=== PATIENT | female | born 1985 | race Caucasian/White ===

== ENCOUNTER 2016-10-25 14:44 | Observation (INO) | payer OTHER ==
[~2016-10-25] VITALS: Ht 165.1 cm; Wt 98.4 kg
[2016-10-25] MEDS ORDERED: PREN-380 PO (15:04)
[2016-10-25 15:25] VITALS: BP 116/63
== END 2016-10-25 20:15 | disposition home or self-care (01) ==
LOC: MLD 14:44
PROVIDERS: ADMIT Obstetrics & Gynecology; ATTEND Obstetrics & Gynecology
DX: O62.9 Abnormality of forces of labor, unspecified (principal); Z3A.37 37 weeks gestation of pregnancy
CPT/HCPCS: 76805; G0378; Q0092; 59025

== ENCOUNTER 2016-10-29 08:10 | Inpatient (IN) | payer OTHER ==
[~2016-10-29] VITALS: Ht 165.1 cm; Wt 96.2 kg
[~2016-10-29 08:10] MED LIST: PREN-380 PO
[2016-10-29] MEDS ORDERED: MISOPROSTOL 25 MCG TAB ONE ×2 (09:36→21:12)
[2016-10-29] MEDS ORDERED: MISOPROSTOL 25 MCG TAB VG ONE (09:40)
[2016-10-29] MEDS ORDERED: METHYLERGONOVINE 0.2 MG/ML AMP IM PRN (09:40)
[2016-10-29] MEDS ORDERED: CARBOPROST 250 MCG/ML AMP IM PRN (09:40)
[2016-10-29] MEDS ORDERED: LACTATED RINGERS 1,000 ML IV SCH (09:45)
[2016-10-29] MEDS ORDERED: OXYTOCIN 10 UNITS/ML VIAL IM SCH (10:00)
--- NOTE | 2016-10-29 10:00 | NUR ---
PATIENT HAS BEEN SCREENED AND CATEGORIZED LOW NUTRITION RISK. PATIENT WILL BE SEEN WITHIN 7 DAYS OF ADMISSION. 11/05/[address]
[2016-10-29 10:04] LABS: BASOPHILS # (AUTO) 0.1 K/uL (0.00-0.22); BASOPHILS % (AUTO) 0.7 % (0.0-2.0); EOSINOPHILS # (AUTO) 0.1 K/uL (0-0.4); EOSINOPHILS % (AUTO) 1.3 % (0.0-4.0); HEMATOCRIT 36.2 % (36-48); HEMOGLOBIN 11.9 g/dL (12.0-16.0); LYMPHOCYTES # (AUTO) 2.3 K/uL (2.5-16.5); LYMPHOCYTES % (AUTO) 23.2 % (20.5-51.1); MEAN CORPUSCULAR HEMOGLOBIN 31 pg (27-31); MEAN CORPUSCULAR HGB CONC 33 g/dL (33-37); MEAN CORPUSCULAR VOLUME 93 fL (80-94); MONOCYTES # (AUTO) 0.8 K/uL (0.8-1.0); NEUTROPHILS # (AUTO) 6.6 K/uL (1.8-7.7); NEUTROPHILS % (AUTO) 66.8 % (42.2-75.2); PLATELET COUNT (AUTO) 274 K/uL (140-450); RED BLOOD CELL COUNT(AUTO) 3.88 MIL/uL (4.20-5.40); WHITE BLOOD COUNT (AUTO) 9.9 K/uL (4.8-10.8)
[2016-10-29] MEDS: MISOPROSTOL 25 MCG TAB VG PRN ×2 (10:18→21:25)
[2016-10-29] MEDS: LACTATED RINGERS 1,000 ML IV SCH ×2 (10:18→17:36)
[2016-10-29 10:28] LABS: ALBUMIN 2.9 g/dL (3.4-5.0); ANION GAP 15.6 (8-16); CALCIUM 7.8 mg/dL (8.5-10.1); CARBON DIOXIDE 22.4 mmol/L (21-32); CREATININE 0.5 mg/dL (0.6-1.3); TOTAL BILIRUBIN 0.3 mg/dL (0.0-1.0); TOTAL PROTEIN, SERUM 6.8 g/dL (6.4-8.2)
[2016-10-29 10:32] LABS: BILIRUBIN,URINE NEGATIVE (NEGATIVE); BLOOD, URINE TRACE-I (NEGATIVE); COLOR,URINE YELLOW (YELLOW); LEUKOCYTE ESTERASE ,URINE 2+ (NEGATIVE); NITRITE, URINE NEGATIVE (NEGATIVE); PROTEIN,URINE TRACE (NEGATIVE); UGLUCOSE NEGATIVE (NEGATIVE); UROBILINOGEN,URINE 0.2 EU/dL (0.2 - 1)
[2016-10-29 10:37] VITALS: BP 109/68
[2016-10-29 11:21] LABS: APPEARANCE,URINE HAZY (CLEAR)
[2016-10-29 11:22] LABS: BACTERIA,URINE 3+ /HPF (None Seen); MUCUS,URINE 1+ /LPF (None Seen); RBC,URINE NONE SEEN /HPF (0-5); SQUAMOUS EPITHELIAL CELL,UR 20-50 /LPF (0-3 (FEW)); URINE AMORPHOUS URATE 1+ /HPF (None Seen)
[2016-10-29] MEDS ORDERED: OXYTOCIN 20 UNITS/LR PREMIX 1,000 ML IV ONE (14:00)
[2016-10-29] MEDS: OXYTOCIN 20 UNITS/LR PREMIX 1,000 ML IV SCH (14:00)
[2016-10-30] MEDS: LACTATED RINGERS 1,000 ML IV SCH (00:01)
[2016-10-30] MEDS ORDERED: OXYTOCIN 20 UNITS/LR PREMIX 1,000 ML IV ONE (03:09)
[2016-10-30] MEDS: OXYTOCIN 20 UNITS/LR PREMIX 1,000 ML IV SCH (07:26)
[2016-10-30] MEDS ORDERED: NALBUPHINE 10 MG/ML AMP IVP PRN (09:40)
[2016-10-30] MEDS ORDERED: NALBUPHINE HYDROCHLORIDE 10 MG/ML VIAL ONE ×2 (09:46→11:30)
[2016-10-30] MEDS ORDERED: OXYTOCIN 10 UNITS/ML VIAL ONE (10:05)
[2016-10-30] MEDS ORDERED: METHYLERGONOVINE 0.2 MG/ML AMP ONE (10:08)
[2016-10-30] MEDS ORDERED: LIDOCAINE 2% 1000 MG/50 ML VIAL INJ ONE (10:08)
[2016-10-30] MEDS ORDERED: ROPIVACAINE 0.2%/NS PREMIX 250 ML EPI ONE (10:56)
[2016-10-30] MEDS ORDERED: OXYTOCIN 20 UNITS/LR PREMIX 1,000 ML IV SCH (14:33)
[2016-10-30] MEDS ORDERED: BISACODYL 5 MG TABEC PO PRN (14:35)
[2016-10-30] MEDS ORDERED: MEASLES, MUMPS, AND RUBELLA 1 VIAL SQVAC PRN (14:35)
[2016-10-30] MEDS: ACETAMINOPHEN 325 MG TAB PO PRN ×2 (18:41→23:30)
[2016-10-31 07:37] LABS: BASOPHILS # (AUTO) 0.1 K/uL (0.00-0.22); EOSINOPHILS # (AUTO) 0.2 K/uL (0-0.4); EOSINOPHILS % (AUTO) 1.3 % (0.0-4.0); HEMATOCRIT 35.1 % (36-48); HEMOGLOBIN 11.6 g/dL (12.0-16.0); LYMPHOCYTES # (AUTO) 2.4 K/uL (2.5-16.5); LYMPHOCYTES % (AUTO) 19.9 % (20.5-51.1); MEAN CORPUSCULAR HEMOGLOBIN 31 pg (27-31); MEAN CORPUSCULAR HGB CONC 33 g/dL (33-37); MEAN CORPUSCULAR VOLUME 93 fL (80-94); MONOCYTES % (AUTO) 7.9 % (1.7-9.3); NEUTROPHILS # (AUTO) 8.4 K/uL (1.8-7.7); NEUTROPHILS % (AUTO) 69.9 % (42.2-75.2); PLATELET COUNT (AUTO) 279 K/uL (140-450); RED BLOOD CELL COUNT(AUTO) 3.76 MIL/uL (4.20-5.40); RED CELL DISTRIBUTION WIDTH 13.3 % (11.6-13.7); WHITE BLOOD COUNT (AUTO) 12.1 K/uL (4.8-10.8)
[2016-10-31] MEDS: oxyCODONE/APAP 5/325 MG 1 TAB TAB PO PRN ×2 (12:22→17:50)
[2016-11-01] MEDS: oxyCODONE/APAP 5/325 MG 1 TAB TAB PO PRN (00:34)
[2016-11-01] MEDS: ACETAMINOPHEN 325 MG TAB PO PRN (10:15)
== END 2016-11-01 15:00 | disposition home or self-care (01) | DRG 560 ==
LOC: MLD 08:10 → MFCC 10-30 16:55
PROVIDERS: ADMIT Obstetrics & Gynecology; ATTEND Obstetrics & Gynecology
PROC: 10E0XZZ Delivery of Products of Conception, External Approach (ICD-10-PCS; principal; 2016-10-30)
PROC: 3E0P7GC Introduction of Other Therapeutic Substance into Female Reproductive, Via Natural or Artificial Opening (ICD-10-PCS; 2016-10-30)
PROC: 10907ZC Drainage of Amniotic Fluid, Therapeutic from Products of Conception, Via Natural or Artificial Opening (ICD-10-PCS; 2016-10-30)
PROC: 3E033VJ Introduction of Other Hormone into Peripheral Vein, Percutaneous Approach (ICD-10-PCS; 2016-10-30)
PROC: 00HU33Z Insertion of Infusion Device into Spinal Canal, Percutaneous Approach (ICD-10-PCS; 2016-10-30)
PROC: 3E0R3CZ (ICD-10-PCS; 2016-10-30)
PROC: 3E0234Z Introduction of Serum, Toxoid and Vaccine into Muscle, Percutaneous Approach (ICD-10-PCS; 2016-10-31)
CPT/HCPCS: 36415; 51702; 59200; 59409; 76815; 80053; 81001; 85025; 86592; 86886; 86900; 86901; 87086; 90707; J2001; J2210; J2300; J2590; J2795; J7120; Q0092